=== PATIENT | male | born 1960 | race Caucasian/White ===

== ENCOUNTER 2019-05-05 17:36 | Inpatient (IN) | payer OTHER ==
[~2019-05-05] VITALS: Ht 193 cm; Wt 104.3 kg
[2019-05-05 17:39] VITALS: Ht 193 cm; Wt 104.3 kg
[2019-05-05 18:48] LABS: BASOPHIL % 0.3 % (0-2); PLATELET COUNT 133 x10^3mcL (130-400)
[2019-05-05 18:52] LABS: BILIRUBIN TOTAL 0.7 mg/dL (0.20-1.00); CALCIUM 8.1 mg/dL (8.5-10.1); CARBON DIOXIDE 28.5 mmol/L (21-32); TOTAL PROTEIN, SERUM 7.9 g/dL (6.4-8.2)
[2019-05-05 18:54] LABS: ALBUMIN 2.8 g/dL (3.4-5.0)
[2019-05-05 18:55] LABS: CREATININE SERUM 7.4 mg/dL (0.7-1.3); POTASSIUM SERUM 5.8 mmol/L (3.5-5.1)
[2019-05-05 18:59] LABS: RED CELL DISTRIBUTION WIDTH 23.1 % (11.5-14.5)
[2019-05-05 19:20] LABS: rbc morphology (normal/abnorm) ABNORMAL (NORMAL)
[2019-05-05] MEDS ORDERED: GABAPENTIN300 M4 PO (20:30)
[2019-05-05] MEDS ORDERED: IMODIUM A-1 MG/7.51 PO (20:31)
[2019-05-05] MEDS ORDERED: HYPERTENSION (20:32)
[2019-05-05] MEDS ORDERED: NORVASC5 MG PO (21:00)
[2019-05-05 21:45] VITALS: BP 98/54
[2019-05-06 00:10] VITALS: BP 96/63
[2019-05-06 04:41] VITALS: BP 77/43
[2019-05-06 06:25] LABS: CALCIUM 7.9 mg/dL (8.5-10.1); CARBON DIOXIDE 29.4 mmol/L (21-32); MAGNESIUM 2.6 mg/dL (1.8-2.4); PHOSPHOROUS 8.5 mg/dL (2.5-4.9)
[2019-05-06 06:34] LABS: BASOPHIL % 0.5 % (0-2)
[2019-05-06 06:55] LABS: CREATININE SERUM 7.9 mg/dL (0.7-1.3)
[2019-05-06 07:01] LABS: PLATELET COUNT 111 x10^3mcL (130-400); RED CELL DISTRIBUTION WIDTH 22.6 % (11.5-14.5)
[2019-05-06 16:05] LABS: rbc morphology (normal/abnorm) ABNORMAL (NORMAL)
== END 2019-05-06 09:35 | disposition left against medical advice (07) | DRG 249 ==
LOC: ED 17:36 → DU 19:41
PROVIDERS: Emergency Medicine; ADMIT Internal Medicine
DX: K52.9 Noninfective gastroenteritis and colitis, unspecified (principal); E43 Unspecified severe protein-calorie malnutrition; E11.22 Type 2 diabetes mellitus with diabetic chronic kidney disease; E11.42 Type 2 diabetes mellitus with diabetic polyneuropathy; S80.01XA Contusion of right knee, initial encounter; D63.1 Anemia in chronic kidney disease; E11.65 Type 2 diabetes mellitus with hyperglycemia; I12.0 Hypertensive chronic kidney disease with stage 5 chronic kidney disease or end stage renal disease; N18.6 End stage renal disease; E87.5 Hyperkalemia; E87.8 Other disorders of electrolyte and fluid balance, not elsewhere classified; F17.210 Nicotine dependence, cigarettes, uncomplicated; F32.9 Major depressive disorder, single episode, unspecified; Z96.641 Presence of right artificial hip joint; Z99.3 Dependence on wheelchair; Z99.2 Dependence on renal dialysis; Z68.28 Body mass index [BMI] 28.0-28.9, adult; Z79.84 Long term (current) use of oral hypoglycemic drugs; W05.0XXA Fall from non-moving wheelchair, initial encounter; Y92.9 Unspecified place or not applicable
CPT/HCPCS: 83880; 87046; 87046-59; 99406; G0378; J2405; J3010; Q0092